=== PATIENT | male | born 1940 | race Caucasian/White ===

== ENCOUNTER → 2018-03-06 14:24 | Outpatient (CLI) | payer MEDICARE, OTHER, SELFPAY ==
--- NOTE | 2018-03-06 | DI.RAD.S_ITS ---
PROCEDURE: XR CHEST 2V INDICATIONS: COUGH TECHNIQUE: 2 views of the chest were acquired. COMPARISON: None. FINDINGS: Surgical changes and devices: None. Lungs and pleura: No pleural effusions or pneumothorax. Lungs are clear. Mediastinum: Mediastinal contours are normal. Heart size is normal. Bones and chest wall: No suspicious bony abnormalities. Soft tissues appear unremarkable. IMPRESSION: Normal for age, source of current symptoms is not seen. Dictated by: Be Henson M.D. on 03/06/2018 at 15:00 Approved by: Be Henson M.D. on 03/06/2018 at 15:01
== END ==
PROVIDERS: Family Provider Internal Medicine; Visit Provider Internal Medicine
DX: R05 Cough (principal)
CPT/HCPCS: 71046

== ENCOUNTER → 2019-04-01 18:52 | Outpatient (ROUT) | payer MEDICARE, OTHER, SELFPAY ==
[2019-04-01 19:32] LABS: Prostate Specific Antigen 0.604 ng/mL (0.10-4.00)
== END ==
PROVIDERS: Family Provider Internal Medicine; Visit Provider Internal Medicine
DX: E29.1 Testicular hypofunction (principal)
CPT/HCPCS: 84153; 84403

== ENCOUNTER → 2020-04-01 19:30 | Outpatient (ROUT) | payer MEDICARE, OTHER, SELFPAY ==
[2020-04-01 19:36] LABS: Add Manual Diff / Slide Review NO; Basophils Absolute Auto 0 /uL (0-100); Basophils Percent Auto 0.8 % (0-2); Eosinophils Absolute Auto 100 /uL (0-450); Eosinophils Percent Auto 2.2 % (2-4); Hematocrit 43.3 % (41-53); Hemoglobin 14.3 g/dL (13.5-17.5); Lymphocytes Absolute Auto 1600 /uL (1100-4500); Lymphocytes Percent Auto 30.4 % (25-40); Mean Corpuscular HGB Conc 32.9 % (30-36); Mean Corpuscular Hemoglobin 32.4 PG (26-34); Mean Corpuscular Volume 98.4 fL (80-100); Monocytes Absolute Auto 500 /uL (0-900); Monocytes Percent Auto 8.4 % (3-14); Neutrophils Absolute Auto 3100 /uL (1500-7000); Neutrophils Percent Auto 58.2 % (50-75); Platelet Count 113 X10^3/uL (150-400); Red Blood Cell Count 4.41 X10^6/uL (4.5-5.9); Red Cell Distribution Width 14.1 % (11.6-14.8); White Blood Cell Count 5.4 X10^3/uL (4.5-11.0)
[2020-04-01 19:40] LABS: Alanine Aminotransferase 21 IU/L (<50); Albumin 4.2 g/dL (3.5-5.0); Albumin Globulin Ratio 1.4 (1.0-2.8); Alkaline Phosphatase 99 U/L (38-126); Aspartate Aminotransferase 39 IU/L (17-59); BUN Creatinine Ratio 21.7 (6-22); Bilirubin Total 0.7 mg/dL (0.2-1.3); Blood Urea Nitrogen 18 mg/dL (9-20); Calcium 9.5 mg/dL (8.4-10.2); Carbon Dioxide 35 mmol/L (22-32); Chloride 100 mmol/L (98-107); Estimated Glomerular Filt Rate > 60.0 mL/min (>60); Globulin 3.1 g/dL (1.7-4.1); Glucose 105 mg/dL (80-110); HEMOLYSIS < 15 (0-50); Potassium 4.1 mmol/L (3.4-5.1); Sodium 139 mmol/L (137-145); Total Protein 7.3 g/dL (6.3-8.2)
[2020-04-01 20:13] LABS: Testosterone 142 ng/dL (71.8-623)
== END ==
PROVIDERS: Family Provider Internal Medicine; Visit Provider Internal Medicine
DX: M15.0 Primary generalized (osteo)arthritis (principal); I10 Essential (primary) hypertension; E29.1 Testicular hypofunction; Z12.5 Encounter for screening for malignant neoplasm of prostate
CPT/HCPCS: 80053; 84403; 85025; G0103

== ENCOUNTER → 2023-03-12 13:35 | Outpatient (CLI) | payer MEDICARE, OTHER, SELFPAY ==
[2023-03-13 16:00] LABS: Fecal Immunochemical Test Negative (Negative)
== END ==
PROVIDERS: Family Provider Internal Medicine; PCP Family Medicine; Referring Provider Family Medicine; Visit Provider Family Medicine
DX: Z12.11 Encounter for screening for malignant neoplasm of colon (principal)
CPT/HCPCS: 82274

== ENCOUNTER → 2023-04-09 16:29 | Outpatient (CLI) | payer MEDICARE, OTHER, SELFPAY ==
[2023-04-11 17:01] LABS: Add Manual Diff / Slide Review NO; Basophils Absolute Auto 0 /uL (0-100); Basophils Percent Auto 0.4 % (0-2); Eosinophils Absolute Auto 100 /uL (0-450); Hematocrit 38.9 % (41-53); Hemoglobin 13.2 g/dL (13.5-17.5); Lymphocytes Absolute Auto 1200 /uL (1100-4500); Lymphocytes Percent Auto 21.6 % (25-40); Mean Corpuscular HGB Conc 33.9 % (30-36); Mean Corpuscular Hemoglobin 32.4 PG (26-34); Mean Corpuscular Volume 95.7 fL (80-100); Monocytes Absolute Auto 300 /uL (0-900); Monocytes Percent Auto 6.2 % (3-14); Neutrophils Absolute Auto 4000 /uL (1500-7000); Neutrophils Percent Auto 70.8 % (50-75); Platelet Count 114 X10^3/uL (150-400); Red Blood Cell Count 4.07 X10^6/uL (4.5-5.9); White Blood Cell Count 5.6 X10^3/uL (4.5-11.0)
[2023-04-11 17:11] LABS: Hemoglobin A1C% w Est Avg Glu 5.5 % (4.0-6.0)
[2023-04-11 17:28] LABS: Alanine Aminotransferase 19 IU/L (<50); Albumin 4.3 g/dL (3.5-5.0); Albumin Globulin Ratio 1.2 (1.0-2.8); Alkaline Phosphatase 82 U/L (38-126); Aspartate Aminotransferase 36 IU/L (17-59); BUN Creatinine Ratio 20.2 (6-22); Blood Urea Nitrogen 19 mg/dL (9-20); Calcium 9.9 mg/dL (8.4-10.2); Carbon Dioxide 28 mmol/L (22-32); Chloride 98 mmol/L (98-107); Cholesterol 218 mg/dL (140-199); Estimated Glomerular Filt Rate > 60 mL/min (>60); Globulin 3.5 g/dL (1.7-4.1); Glucose 109 mg/dL (80-110); HEMOLYSIS < 15 (0-50); Sodium 136 mmol/L (137-145); Total Protein 7.8 g/dL (6.3-8.2); Triglycerides 74 mg/dL (35-150)
[2023-04-11 17:38] LABS: HDL Cholesterol 128 mg/dL (40-60); LDL Cholesterol Calculated 75 mg/dL (<100)
[2023-04-11 17:58] LABS: Thyroid Stimulating Hormone 1.03 uIU/mL (0.47-4.68)
[2023-04-12 01:23] LABS: Clostridium Difficile Tox PCR Negative for C.diff (Negative)
[2023-04-13 20:35] LABS: Tissue Transglutaminase IgA <2 U/mL (0-3); Tissue Transglutaminase IgG 5 U/mL (0-5)
== END ==
PROVIDERS: Family Provider Internal Medicine; PCP Family Medicine; Referring Provider Family Medicine; Visit Provider Family Medicine
DX: I10 Essential (primary) hypertension (principal); R19.4 Change in bowel habit; J44.9 Chronic obstructive pulmonary disease, unspecified; Z00.00 Encounter for general adult medical examination without abnormal findings; Z13.1 Encounter for screening for diabetes mellitus
CPT/HCPCS: 80053; 80061; 83036; 83516; 84443; 85025; 87493

== ENCOUNTER → 2023-04-11 15:35 | Outpatient (CLI) | payer MEDICARE, OTHER, SELFPAY ==
[2023-04-11 17:30] LABS: Creatinine Urine Random 53.3 mg/dL
[2023-04-11 17:38] LABS: Microalbumin Urine Random < 0.6 mg/dL (0-1.6)
[2023-04-17 16:40] LABS: Calprotectin, Stool 61 ug/g (0-120)
== END ==
PROVIDERS: Family Provider Internal Medicine; PCP Family Medicine; Referring Provider Family Medicine; Visit Provider Family Medicine
DX: R19.4 Change in bowel habit (principal); I10 Essential (primary) hypertension; J44.9 Chronic obstructive pulmonary disease, unspecified; Z00.00 Encounter for general adult medical examination without abnormal findings
CPT/HCPCS: 82043; 82570; 83993; 87045; 87899

== ENCOUNTER 2023-09-22 13:47 | Emergency (ER) | payer MEDICARE, OTHER, SELFPAY ==
[2023-09-22] VITALS (11 sets, daily range): BP systolic 145–178; BP diastolic 65–85; PULSE 66–104; RESP 10–25; TEMP 36.9; O2SAT 94–98; BMI 32.1
--- NOTE | 2023-09-22 14:01 | DI.RAD.S_ITS ---
PROCEDURE: XR CHEST 1V INDICATIONS: Shortness of breath TECHNIQUE: One view of the chest was acquired. COMPARISON: [facility], CR, XR CHEST 2V, 03/06/2018, 14:46. FINDINGS: Surgical changes and devices: None. Lungs and pleura: Lungs are clear. No pleural effusions or pneumothorax. Mediastinum: Mediastinal contours appear normal. Heart size is normal. Bones and chest wall: No suspicious bony lesions. Overlying soft tissues appear unremarkable. IMPRESSION: No acute cardiopulmonary abnormality is seen. Dictated by: Marcial Pantoja M.D. on 09/22/2023 at 15:00 Approved by: Marcial Pantoja M.D. on 09/22/2023 at 15:04
[2023-09-22 14:25] LABS: Add Manual Diff / Slide Review NO; Basophils Absolute Auto 0 /uL (0-100); Basophils Percent Auto 0.2 % (0-2); Eosinophils Absolute Auto 0 /uL (0-450); Eosinophils Percent Auto 0.2 % (2-4); Hematocrit 36.8 % (41-53); Hemoglobin 12.6 g/dL (13.5-17.5); Lymphocytes Absolute Auto 600 /uL (1100-4500); Lymphocytes Percent Auto 10.9 % (25-40); Mean Corpuscular HGB Conc 34.1 % (30-36); Mean Corpuscular Hemoglobin 32.7 PG (26-34); Mean Corpuscular Volume 95.8 fL (80-100); Monocytes Absolute Auto 300 /uL (0-900); Monocytes Percent Auto 5.8 % (3-14); Neutrophils Absolute Auto 4400 /uL (1500-7000); Neutrophils Percent Auto 82.9 % (50-75); Platelet Count 135 X10^3/uL (150-400); Red Blood Cell Count 3.85 X10^6/uL (4.5-5.9); White Blood Cell Count 5.3 X10^3/uL (4.5-11.0)
[2023-09-22 14:31] LABS: Lactate (Lactic Acid) 1.7 mmol/L (0.7-2.1)
[2023-09-22 14:32] LABS: Alanine Aminotransferase 25 IU/L (<50); Albumin 4.2 g/dL (3.5-5.0); Albumin Globulin Ratio 1.2 (1.0-2.8); Alkaline Phosphatase 121 U/L (38-126); Aspartate Aminotransferase 45 IU/L (17-59); BUN Creatinine Ratio 21.4 (6-22); Bilirubin Total 0.7 mg/dL (0.2-1.3); Blood Urea Nitrogen 15 mg/dL (9-20); Calcium 9.4 mg/dL (8.4-10.2); Carbon Dioxide 29 mmol/L (22-32); Chloride 101 mmol/L (98-107); Estimated Glomerular Filt Rate > 60 mL/min (>60); Globulin 3.4 g/dL (1.7-4.1); Glucose 157 mg/dL (80-110); HEMOLYSIS < 15 (0-50); Potassium 4.2 mmol/L (3.4-5.1); Sodium 138 mmol/L (137-145); Total Protein 7.6 g/dL (6.3-8.2)
[2023-09-22 14:43] LABS: NT-proBNP (BNP-Adult 18+) 453 pg/mL (<450); Troponin I < 0.012 ng/mL (0.01-0.034)
[2023-09-22 14:57] LABS: Influenza A - CEPHEID Flu A NEGATIVE (NEGATIVE); Influenza B - CEPHEID Flu B NEGATIVE (NEGATIVE); Respiratory Syncytial Virus Negative (Negative)
[2023-09-22 14:58] LABS: COVID-19 CEPHEID 4-PLEX PCR Negative (Negative)
--- NOTE | 2023-09-22 18:42 | ED.GENADULT ---
HPI - General Adult General Chief complaint: Shortness of Breath/Dyspnea Stated complaint: back pain rt side coughing up blood Time Seen by Provider: 09/22/23 16:51 Source: patient Mode of arrival: Family Vehicle History of Present Illness HPI narrative: Patient is an 83-year-old male. Not on anticoagulation. No underlying lung pathology who for the past couple days only in the morning has had a small amount of blood-tinged sputum when he coughs. He does cough throughout the rest of the day and does produce some amount of sputum however it is only in the morning when he was having some blood. Contacted his magnetic tape typewriter operator office who he was seen in the past because of a chronic cough. They told him to continue to watch his symptoms and if they worsen where a develops new symptoms and he may need a chest x-ray in order to evaluate for pneumonia. He stated that his symptoms really has not improved. He denies fevers. No chest pain. He does have pain on the right side of his chest in his right back however he states that has actually been there for months if not longer. He went to the walk-in clinic in order to get a chest x-ray and they sent him here to the emergency department. At the time of my evaluation he reports that he was feeling fine. No abdominal pain. No easy bruising. No nosebleeds. No sinus congestion or sore throat. Related Data Home Medications Medication Instructions Recorded Confirmed amlodipine 2.5 mg tablet 2.5 mg PO BID 11/30/22 07/12/23 bisoprolol fumarate 10 mg tablet 10 mg PO DAILY 11/30/22 07/12/23 carisoprodol 350 mg tablet 350 mg PO TID 11/30/22 07/12/23 cholecalciferol (vitamin D3) 50 50 mcg PO DAILY 11/30/22 07/12/23 mcg (2,000 unit) capsule cinnamon bark 500 mg capsule 500 mg PO DAILY 11/30/22 07/12/23 (Cinnamon) doxazosin 2 mg tablet 2 mg PO DAILY 11/30/22 07/12/23 eplerenone 25 mg tablet 25 mg PO DAILY 11/30/22 07/12/23 magnesium 200 mg tablet 200 mg PO DAILY 11/30/22 07/12/23 qqujcyxd-ua-kclwa 300 mcg-K 60 1 tab PO DAILY 11/30/22 07/12/23 mcg-lycop 600 mcg-lutein 300 mcg tablet (Centrum Silver Men) oxycodone 5 mg capsule 5 mg PO TID PRN 11/30/22 07/12/23 pravastatin 10 mg tablet 10 mg PO DAILY 11/30/22 07/12/23 telmisartan 80 mg tablet (Micardis) 80 mg PO DAILY 11/30/22 07/12/23 testosterone 1 % (50 mg/5 gram) 1 packet transdermal QAM 11/30/22 07/12/23 transdermal gel packet (AndroGel) vitamins A,C,I-cxgy-phpxco 2,148 2 tab PO BID 11/30/22 07/12/23 mcg-113 mg-45 mg-17.4 mg tablet (PreserVision AREDS) Previous Rx's Medication Instructions Recorded albuterol sulfate 90 mcg/actuation 2 inh inhalation Q4-6H PRN 11/30/22 breath activated powder inhaler shortness of breath or wheezing #1 ea benzonatate 100 mg capsule 100 mg PO BID-TID PRN cough #14 09/22/23 caps Allergies Allergy/AdvReac Type Severity Reaction Status Date / Time No Known Drug Allergies Allergy Verified 09/22/23 14:01 Review of Systems Review of Systems ROS Unobtainable: All systems reviewed & are unremarkable except as noted in HPI and below Patient History Medical History Chronic back pain (~2014) Mumps Measles Chicken pox Low testosterone (~1999) Skin cancer (~2009) HTN (hypertension) Osteoarthritis Surgical History (Updated 03/31/23 @ 21:11 by Sharyn Pham) Anesthesia Total knee replacement status Family History (Updated 03/31/23 @ 21:13 by Sharyn Pham) Father History of heart disease Brother Cancer Brother ALS (amyotrophic lateral sclerosis) Grandmother History of heart disease Social History Smoking Status: Former smoker Smoking Status: Former smoker Exam Initial Vital Signs Initial Vital Signs: Vital Signs Temperature 98.4 F 09/22/23 13:53 Pulse Rate 104 H 09/22/23 13:53 Respiratory Rate 20 09/22/23 13:53 Blood Pressure 178/85 H 09/22/23 13:53 Pulse Oximetry 98 09/22/23 13:53 Oxygen Delivery Method Room Air 09/22/23 13:53 Const General: cooperative, comfortable and No ill appearing HENIN Head: normal to inspection and normocephalic Mouth: oral mucosae normal and moist mucous membranes Chest Chest: No crepitus and No tenderness Resp Effort & Inspection: normal respiratory effort Auscultation: clear to auscultation bilaterally Cardio Rate: regular rate Rhythm: regular rhythm Skin General: no rashes or lesions noted Neuro General: patient alert, patient awake, patient oriented x3 and moves all extremities Speech: speech normal Extrem General: normal to inspection and capillary refill normal Course Orders Ordered: ED Orders 09/22/23 14:01 XR chest 1V Stat EKG-12 Lead Stat Measure peak expiratory flow ONCE RT Consult Eval and Treat NOW 09/22/23 14:10 Complete Blood Count AUTO DIFF Stat Comprehensive Metabolic Panel Stat Covid-19 + FLU A/B + RSV - PCR Stat Lactate (Lactic Acid) Stat NT-proBNP (BNP-Adult 18+) Stat Prothrombin Time INR Stat Troponin I Stat Vital Signs Vital signs: Vital Signs - 8 hr 09/22/23 18:48 09/22/23 18:48 09/22/23 19:00 Pulse Rate 74 75 Respiratory Rate 14 Blood Pressure 145/65 H 145/65 H Pulse Oximetry 97 97 Oxygen Delivery Method Room Air Room Air Medical Decision Making Lab Data Lab results reviewed: Yes I reviewed the patient's lab results. 09/22/23 14:10 09/22/23 14:10 Labs: Lab Results 09/22/23 Range/Units 14:10 WBC 5.3 (4.5-11.0) X10^3/uL RBC 3.85 L (4.5-5.9) X10^6/uL Hgb 12.6 L (13.5-17.5) g/dL Hct 36.8 L (41-53) % MCV 95.8 (80-100) fL MCH 32.7 (26-34) PG MCHC 34.1 (30-36) % RDW 14.0 (11.6-14.8) % Plt Count 135 L (150-400) X10^3/uL Neut % (Auto) 82.9 H (50-75) % Lymph % (Auto) 10.9 L (25-40) % [place] % (Auto) 5.8 (3-14) % Eos % (Auto) 0.2 L (2-4) % Baso % (Auto) 0.2 (0-2) % Neut # (Auto) 4400 (0982-0680) /uL Lymph # (Auto) 600 L (2817-6332) /uL [place] # (Auto) 300 (0-900) /uL Eos # (Auto) 0 (0-450) /uL Baso # (Auto) 0 (0-100) /uL PT 12.0 (9.4-12.5) SECONDS INR 1.0 (0.9-1.3) Sodium 138 (137-145) mmol/L Potassium 4.2 (3.4-5.1) mmol/L Chloride 101 (98-107) mmol/L Carbon Dioxide 29 (22-32) mmol/L BUN 15 (9-20) mg/dL Creatinine 0.70 (0.66-1.25) mg/dL Estimated GFR > 60 (>60) mL/min BUN/Creatinine Ratio 21.4 (6-22) Glucose 157 H (80-110) mg/dL Lactate 1.7 (0.7-2.1) mmol/L Calcium 9.4 (8.4-10.2) mg/dL Total Bilirubin 0.7 (0.2-1.3) mg/dL AST 45 (17-59) IU/L ALT 25 (<50) IU/L Alkaline Phosphatase 121 (38-126) U/L Troponin I < 0.012 (0.01-0.034) ng/mL NT-Pro-B Natriuret Pep 453 H (<450) pg/mL Total Protein 7.6 (6.3-8.2) g/dL Albumin 4.2 (3.5-5.0) g/dL Globulin 3.4 (1.7-4.1) g/dL Albumin/Globulin Ratio 1.2 (1.0-2.8) SARS-CoV-2 (PCR) Negative (Negative) Influenza A (RT-PCR) Flu a negative (NEGATIVE) Influenza B (RT-PCR) Flu b negative (NEGATIVE) RSV (PCR) Negative (Negative) Imaging Data Chest x-ray: Radiologist's Impression: PROCEDURE: XR CHEST 1V INDICATIONS: Shortness of breath TECHNIQUE: One view of the chest was acquired. COMPARISON: [facility], CR, XR CHEST 2V, 03/06/2018, 14:46. FINDINGS: Surgical changes and devices: None. Lungs and pleura: Lungs are clear. No pleural effusions or pneumothorax. Mediastinum: Mediastinal contours appear normal. Heart size is normal. Bones and chest wall: No suspicious bony lesions. Overlying soft tissues appear unremarkable. IMPRESSION: No acute cardiopulmonary abnormality is seen. ECG Data Attestation: I personally reviewed and interpreted this ECG as follows: Interpretation: Sinus rhythm Ventricular rate 99 First-degree AV block NJ of 266 milliseconds Normal axis No ST T wave changes MDM Narrative Medical decision making narrative: Chest x-ray is unremarkable. Vital signs unremarkable. Labs unremarkable. I have low suspicion that this is a pulmonary embolism. He was only having a small amount of blood-tinged sputum specifically in the morning. Most consistent with bronchitis. No indication for antibiotics. We will hold on even steroids from now. Will have patient contact his magnetic tape typewriter operator for follow-up. He was given return precautions and follow-up instructions. He expressed understanding and agreement with the plan. Discharge Plan Departure Patient Disposition: Home Clinical Impression: Bronchitis Instructions: Acute Bronchitis Activity Restrictions/Additional Instructions: Continue to take all of your medications as directed. Keep your scheduled medical appointment with your magnetic tape typewriter operator. Return to the emergency department for new or worsening symptoms. Prescriptions: New benzonatate 100 mg capsule 100 mg PO BID-TID PRN (Reason: cough) Qty: 14 0RF No Action telmisartan [Micardis] 80 mg tablet 80 mg PO DAILY amlodipine 2.5 mg tablet 2.5 mg PO BID doxazosin 2 mg tablet 2 mg PO DAILY bisoprolol fumarate 10 mg tablet 10 mg PO DAILY eplerenone 25 mg tablet 25 mg PO DAILY pravastatin 10 mg tablet 10 mg PO DAILY testosterone [AndroGel] 1 % (50 mg/5 gram) gel in packet 1 packet transdermal QAM carisoprodol 350 mg tablet 350 mg PO TID oxycodone 5 mg capsule 5 mg PO TID PRN Centrum Silver Men [id number] mcg tablet 1 tab PO DAILY cholecalciferol (vitamin D3) 50 mcg (2,000 unit) capsule 50 mcg PO DAILY PreserVision AREDS 2,148 mcg-113 mg-45 mg-17.4mg tablet 2 tab PO BID Rx Instructions: administer with AM and PM meals cinnamon bark [Cinnamon] 500 mg capsule 500 mg PO DAILY magnesium 200 mg tablet 200 mg PO DAILY albuterol sulfate 90 mcg/actuation aerosol powdr breath activated 2 inh inhalation Q4-6H PRN (Reason: shortness of breath or wheezing) Qty: 1 11RF Referrals: John Beach MD [Primary Care Provider] - Stand Alone Forms: Patient Portal/API
== END 2023-09-22 19:02 | disposition home or self-care (01) ==
PROVIDERS: Emergency Medicine; Emergency Provider Emergency Medicine; Family Provider Internal Medicine; PCP Family Medicine
DX: J20.9 Acute bronchitis, unspecified (principal); I44.0 Atrioventricular block, first degree; R06.02 Shortness of breath; Z79.899 Other long term (current) drug therapy; Z20.822 Contact with and (suspected) exposure to COVID-19
CPT/HCPCS: 0241U; 36415; 71045; 80053; 83605; 83880; 84484; 85025; 85610; 93005; 99284

== ENCOUNTER → 2023-09-26 15:36 | Outpatient (CLI) | payer MEDICARE, OTHER, SELFPAY ==
--- NOTE | 2023-09-26 15:37 | DI.CT.S_ITS ---
PROCEDURE: CT CHEST HIGH RESOLUTION INDICATIONS: Chronic obstructive pulmonary disease. Eval for ILD TECHNIQUE: Noncontrast 1.0 and 5.0 mm thick contiguous axial sections from the pulmonary apex to the posterior costophrenic angles, with 7 mm thick coronal and sagittal MIP reformats. 1 mm thick dynamic expiratory images acquired through the upper, mid, and lower lungs. 1.0 mm thick axial sections acquired from the long to the posterior costophrenic angles in the prone end-inspiration position. For radiation dose reduction, the following was used: automated exposure control, adjustment of mA and/or kV according to patient size. COMPARISON: [facility], CR, XR CHEST 1V, 09/22/2023, 14:26. [facility], CR, XR CHEST 2V, 03/06/2018, 14:46. FINDINGS: Image quality: Diagnostic. Lower Neck: No enlarged lymph nodes. Thyroid: No thyroid nodules which require sonographic follow up, per consensus guidelines. Axillae: No enlarged lymph nodes. Chest Wall: Unremarkable. Bones: No suspicious osseous lesion. Lungs and Pleura: No pneumothorax. Trace right pleural effusion. Mild emphysematous change. Mild opacity at the right lung base. The central airways are clear. No honeycombing. No air trapping. No mass or significant pulmonary nodules. Mild peripheral reticular thickening. Heart: Heart size is normal. No pericardial effusion. Thoracic Vessels: The aorta and pulmonary arteries demonstrate normal size. Mediastinum and [place]: No enlarged lymph nodes. Esophagus: No wall thickening. No hiatal hernia. Upper Abdomen: Visualized upper abdomen solid organs and bowel loops appear normal. IMPRESSION: 1. Mild peripheral reticular thickening which could be seen in the setting of interstitial lung disease. No honeycombing or significant fibrosis. 2. No mass or significant pulmonary nodules. Mild emphysematous change. 3. Trace right pleural effusion. Right basilar opacity. This could represent compressive atelectasis or pneumonia. Dictated by: Bulmaro Baig M.D. on 09/26/2023 at 17:36 Approved by: Bulmaro Baig M.D. on 09/26/2023 at 17:44
== END ==
PROVIDERS: Family Provider Internal Medicine; PCP Family Medicine; Referring Provider Internal Medicine Critical Care Medicine; Visit Provider Internal Medicine Critical Care Medicine
DX: J40 Bronchitis, not specified as acute or chronic (principal); J44.9 Chronic obstructive pulmonary disease, unspecified
CPT/HCPCS: 71250

== ENCOUNTER → 2023-10-21 13:32 | Outpatient (CLI) | payer MEDICARE, OTHER, SELFPAY ==
--- NOTE | 2023-10-21 13:34 | DI.RAD.S_ITS ---
PROCEDURE: XR LUMBAR SPINE MIN 4V INDICATIONS: low back pain TECHNIQUE: 5 views of the lumbar spine were acquired, including bilateral oblique views. COMPARISON: [facility], , L-SPINE 2-3 VIEWS, 03/02/2016, 12:27. FINDINGS: Bones: 5 nonrib-bearing vertebrae are present. There is 7 millimeter anterolisthesis of L4 on L5. No vertebral body compression fractures. Loss of disc height, degenerative endplate changes and bilateral facet hypertrophic changes are seen throughout lumbar spine. No suspicious bony lesions. Soft tissues: Overlying bowel gas pattern is normal. No suspicious soft tissue calcifications. Oblique images: No pars defects. Bilateral bony foraminal stenosis at L3-4 through L5-S1 levels are seen. IMPRESSION: 1. Grade 1 anterolisthesis of L4 on L5. No acute compression fracture. 2. 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 No gross pars defects. Dictated by: Garry Crews M.D. on 10/21/2023 at 15:48 Approved by: Garry Crews M.D. on 10/21/2023 at 15:49
== END ==
LOC: RAD 13:33
PROVIDERS: Family Provider Internal Medicine; PCP Family Medicine; Referring Provider Anesthesiology; Visit Provider Anesthesiology
DX: M43.16 Spondylolisthesis, lumbar region (principal); M51.36 Other intervertebral disc degeneration, lumbar region; M48.061 Spinal stenosis, lumbar region without neurogenic claudication; M48.07 Spinal stenosis, lumbosacral region; M54.9 Dorsalgia, unspecified; G89.29 Other chronic pain
CPT/HCPCS: 72110

== ENCOUNTER → 2024-09-19 12:13 | Outpatient (CLI) | payer MEDICARE, OTHER, SELFPAY ==
[2024-09-19 12:49] LABS: Hemoglobin 12.6 g/dL (13.5-17.5); Mean Corpuscular HGB Conc 34.1 % (30-36); Mean Corpuscular Hemoglobin 32.7 PG (26-34); Mean Corpuscular Volume 96.1 fL (80-100); Platelet Count 147 X10^3/uL (150-400); Red Blood Cell Count 3.86 X10^6/uL (4.5-5.9); Red Cell Distribution Width 13.8 % (11.6-14.8); White Blood Cell Count 5.7 X10^3/uL (4.5-11.0)
[2024-09-19 13:16] LABS: HEMOLYSIS < 15 (0-50); Iron 56 ug/dL (49-181)
[2024-09-19 13:18] LABS: Alanine Aminotransferase 16 IU/L (<50); Albumin 4.3 g/dL (3.5-5.0); Albumin Globulin Ratio 1.5 (1.0-2.8); Alkaline Phosphatase 111 U/L (38-126); Aspartate Aminotransferase 31 IU/L (17-59); BUN Creatinine Ratio 17.7 (6-22); Bilirubin Total 0.9 mg/dL (0.2-1.3); Blood Urea Nitrogen 14 mg/dL (9-20); Calcium 9.8 mg/dL (8.4-10.2); Carbon Dioxide 27 mmol/L (22-32); Chloride 101 mmol/L (98-107); Cholesterol 177 mg/dL (140-199); Estimated Glomerular Filt Rate > 60 mL/min (>60); Globulin 2.9 g/dL (1.7-4.1); Glucose 109 mg/dL (70-99); HDL Cholesterol 103 mg/dL (40-60); HEMOLYSIS < 15 (0-50); LDL Cholesterol Calculated 63 mg/dL (<100); Potassium 4.7 mmol/L (3.4-5.1); Sodium 137 mmol/L (137-145); Total Protein 7.2 g/dL (6.3-8.2); Triglycerides 57 mg/dL (35-150)
[2024-09-19 13:27] LABS: NT-proBNP (BNP-Adult 18+) 1850 pg/mL (<450); Percent Iron Saturation 17 % (20-50); Total Iron Binding Capacity 336 ug/dL (261-462); Transferrin 292 mg/dL (206-381)
[2024-09-19 13:49] LABS: TSH w/ Reflex to FT4 1.29 uIU/mL (0.47-4.68)
[2024-09-19 13:53] LABS: Ferritin 103 ng/mL (18-464)
[2024-09-19 14:28] LABS: Creatinine Urine Random 58.59 mg/dL
[2024-09-19 14:32] LABS: Microalbumin Urine Random 0.6 mg/dL (0-1.6)
== END ==
PROVIDERS: Family Provider Internal Medicine; PCP Family Medicine; Referring Provider Family Medicine; Visit Provider Family Medicine
DX: I10 Essential (primary) hypertension (principal); R06.09 Other forms of dyspnea; R60.0 Localized edema; R05.3 Chronic cough; R53.83 Other fatigue; Z13.220 Encounter for screening for lipoid disorders; J44.9 Chronic obstructive pulmonary disease, unspecified; Z13.21 Encounter for screening for nutritional disorder; E78.5 Hyperlipidemia, unspecified
CPT/HCPCS: 36415; 80053; 80061; 82043; 82306; 82570; 82728; 83540; 83550; 83880; 84443; 85027

== ENCOUNTER → 2024-09-25 14:53 | Outpatient (CLI) | payer MEDICARE, OTHER, SELFPAY ==
--- NOTE | 2024-09-25 14:55 | DI.ECHO.S_ITS ---
[place] [facility]+ [facility] : : [id number] : [place] : : [id number] : : Phone: [phone] Echocardiogram Report + + :Name: GAMALIEL CROUCH Study Date: 09/25/2024 Height: 71 in : :[facility] ReadingLocation: Weight: 230 lb : : Gender: Male BSA: 2.2 m2 : :: 1940 Age: 84 yrs BP: 165/68 mmHg: :Reason For Study: BILATERAL LEG EDEMA : :Ordering Physician: FEMI, : :JOHN Kinsey Performed By: John Landaverde : :Referring: JOHN KAHN : + + Interpretation Summary The ejection fraction is estimated to be 60-65%. Grade III diastolic dysfunction. The right ventricular systolic function is normal. The right ventricular systolic pressure is estimated to be at least 47 mmHg based on an estimated right atrial pressure of 8 mm Hg. The left atrium is moderately dilated. The right atrium is severely dilated. No significant valvular abnormalities. Procedure: A two-dimensional transthoracic echocardiogram with color flow and Doppler was performed. The study quality was technically good. There is no prior echocardiogram noted for this patient. The patient was in normal sinus rhythm during the exam. Left Ventricle: The left ventricle is normal in size. There is normal left ventricular wall thickness. There is no ventricular septal defect visualized. The ejection fraction is estimated to be 60-65%. There are no focal wall motion abnormalities. Grade III diastolic dysfunction. Right Ventricle: The right ventricle is mild to moderately dilated. The right ventricular systolic function is normal. Atria: The left atrium is moderately dilated. The right atrium is severely dilated. There is no Doppler evidence for an interatrial shunt. Mitral Valve: The mitral valve leaflets appear mildly thickened, but open well. The mitral valve leaflets are mildly calcified. There is mild mitral annular calcification. There is trace mitral regurgitation. Aortic Valve: The aortic valve is trileaflet. The aortic valve opens well. The aortic valve is mildly calcified. There is no aortic valve stenosis. No aortic regurgitation is present. Tricuspid Valve: The tricuspid valve leaflets are thin and pliable. There is mild tricuspid regurgitation. The right ventricular systolic pressure is estimated to be at least 47 mmHg based on an estimated right atrial pressure of 8 mm Hg. Pulmonic Valve: The pulmonic valve is not well seen, but is grossly normal. There is trace pulmonic regurgitation. Great Vessels: The aortic root is normal size. The dimensions of the ascending aorta are normal. The pulmonary artery is normal size. The IVC is dilated (diameter is greater than 2.1 cm) yet it collapses greater than 50% with a sniff. This suggests a right atrial pressure of 8 mm Hg. Pericardium/ Pleura There is no pericardial effusion. There is no pleural effusion. MMode/2D Measurements & Calculations LVIDd: 5.2 cm LVOT diam: 2.1 cm LVIDs: 3.2 cm Ao root diam: 3.4 cm FS: 38.3 % asc Aorta Diam: 3.3 cm EPSS: 0.78 cm IVSd: 0.97 cm LVPWd: 0.95 cm LV ferguson. diameter/BSA (cm/m^2): 2.3 LV sys. diameter/BSA (cm/m^2): 1.4 LA A2 area: 25.7 cm2 RA long axis: 6.3 cm LA A4 area: 26.8 cm2 RA area: 26.7 cm2 LA length (vol): 6.4 cm RA vol: 96.2 ml LA vol: 91.0 ml RA : 43.0 ml/m2 LA vol index: 40.7 ml/m2 IVC diam: 2.4 cm RVD1 (basal): 4.8 cm RVD2 (mid): 3.2 cm TAPSE: 3.1 cm Doppler Measurements & Calculations Ao V2 max: 179.0 cm/sec LVOT Max Diego: 123.4 cm/sec Ao V2 mean: 123.6 cm/sec LV V1 max P.1 mmHg Ao max P.8 mmHg LV V1 VTI: 28.6 cm Ao mean P.9 mmHg JACQUELINE(I,D): 2.7 cm2 Ao V2 VTI: 36.7 cm JACQUELINE(V,D): 2.4 cm2 sev ratio: 0.78 JACQUELINE indexed to BSA (cm^2/m^2): 1.2 MV E max diego: 129.0 cm/sec TR max diego: 314.3 cm/sec MV A max diego: 57.6 cm/sec TR max P.5 mmHg MV E/A: 2.2 PA V2 max: 109.7 cm/sec Med Peak E' Diego: 6.8 cm/sec PA V2 mean: 76.1 cm/sec E/E' med: 19.1 PA mean P.6 mmHg Lat Peak E' Diego: 9.5 cm/sec PA pr(Accel): 34.5 mmHg E/E' lat: 13.6 E/e' average: 16.3 MV dec time: 0.14 sec SV(LVOT): 100.5 ml Reading Physician:04:22 PM
== END ==
PROVIDERS: Family Provider Internal Medicine; PCP Family Medicine; Referring Provider Family Medicine; Visit Provider Family Medicine
DX: I07.1 Rheumatic tricuspid insufficiency (principal); I10 Essential (primary) hypertension
CPT/HCPCS: 93306

== ENCOUNTER → 2024-10-24 11:32 | Outpatient (CLI) | payer MEDICARE, OTHER, SELFPAY ==
--- NOTE | 2024-10-24 12:01 | EKG_ITS ---
[facility] [address] [place] [address] Test Date: 2024-10-24 Pat Name: Dayne Sanderson Department: Room: Gender: Male Planning Supervisor: : 1940 Requested By: Order Number: [id number] Reading MD: Van Ayoub MD Measurements Intervals [place] Rate: 59 P: 89 HI: QRS: 44 QRSD: 94 T: 75 QT: 416 QTc: 411 Interpretive Statements Atrial flutter with variable AV block Nonspecific ST abnormality Electronically Signed On 10-25-2024 8:27:50 PDT by Van Ayoub MD
[2024-10-24 12:53] LABS: Hemoglobin A1C% w Est Avg Glu 5.6 % (4.0-6.0)
== END ==
PROVIDERS: PCP Family Medicine; Referring Provider Orthopaedic Surgery; Visit Provider Orthopaedic Surgery
DX: Z01.818 Encounter for other preprocedural examination (principal); R73.9 Hyperglycemia, unspecified
CPT/HCPCS: 36415; 83036; 93005; 93010